=== PATIENT | female | born 1980 | race Caucasian/White ===

== ENCOUNTER → 2018-07-20 | Outpatient (CLI) | payer OTHER ==
[~2018-07-20] MED LIST: IBUP-1222 PO; IBUP200T49 PO; OXYC-302 PO
[2018-07-20 11:40] LABS: CHOLESTEROL, TOTAL 144 mg/dL (140-239); TRIGLYCERIDES 57 mg/dL (50-200); VLDL CHOLESTEROL 11 mg/dL (0-25)
[2018-07-20 11:48] LABS: CHOL/HDL RATIO 2.3; HDL CHOL % 44 % (28-40); HDL CHOLESTEROL (DIRECT) 63 mg/dL (40-60); LDL CHOLESTEROL,CALCULATED 70 mg/dL (54-169); LDL/HDL RATIO 1.1 (0.5-3.0)
[2018-07-20 12:17] LABS: T4 (THYROXINE) 37.9 mcg/dL (4.8-13.9)
[2018-07-20 12:19] LABS: FREE T4 (FREE THYROXINE) > 8.00 ng/dL (0.76-1.46)
== END | disposition home or self-care (01) ==
LOC: LAB 11:05
PROVIDERS: ATTEND Registered Nurse
DX: E78.5 Hyperlipidemia, unspecified (principal); E28.8 Other ovarian dysfunction; R94.4 Abnormal results of kidney function studies
CPT/HCPCS: 36415; 80061; 83001; 83002; 84436; 84439; 84480; 84481